=== PATIENT | male | born 1955 | race Caucasian/White ===

== ENCOUNTER → 2017-10-24 | Outpatient (CLI) | payer BC ==
[~2017-10-24] MED LIST: ADVIN50050 INH; ALBU18002 INH; ALBU1AER9 INH; ASPI81TA28 PO; ATV/1 PO; AZEL0.055 OP; CIPR-255 PO; CLB/200 PO; CLON0.5T3 PO; CYM/30 PO; DULO60CA44 PO; FLUT27.5 NAE; GABA-112 PO; GLC/500 PO; HYDR12.55 PO; KETO1DRO13 OPB; LISI-729 PO; LOSA1TAB PO; LOVA40TA4 PO; MECL1TAB42 PO; MONT1TAB3 PO; OLAN1TAB7 PO; OLOP0.6S NAE; OXYB15TA12 PO; OXYB5TAB21 PO; PANT1TAB3 PO; PRAV20TA PO; PRLSR20 PO; SERT-234 PO; TIOT1SPR INH; TURMERIC PO
--- NOTE | 2017-10-24 14:45 | DIAGNOSTIC IMAGING REPORT ---
ABDOMEN AND PELVIS CT WITHOUT CONTRAST CT DOSE: 1064.81 mGycm HISTORY: Acute bladder spasms with history of multiple urinary tract infections N32.89 Bladder [id number] Bladder neck contractHock[facility]# [id number] TECHNIQUE: Multiaxial CT images of the abdomen and pelvis were performed without contrast. A dose lowering technique was utilized adhering to the principles of ALARA. COMPARISON STUDY: None. FINDINGS: 3 mm nodule of the free segment lingula is pleural-based causing mild retraction of the subpleural fat. Pleural-based nodules of the right lower lobe are seen measuring up to 3 mm. These are likely benign. No pneumatosis or pneumoperitoneum. The imaged inferior cardiac chambers are unremarkable. Prior cholecystectomy. Mild fatty infiltration of the liver. No focal hepatic mass lesions or intrahepatic biliary ductal dilation. Spleen, and adrenal glands are within normal limits. Mild to moderate generalized pancreatic atrophy. Mild symmetric nonspecific bilateral perinephric stranding without renal calculi, ureteral calculi or obstructive uropathy. The ureters appear normal. Suprapubic urinary bladder catheter is noted with decompressed urinary bladder lumen. Mild stranding with wall thickening of the bladder is noted. Prostate appears to be surgically absent. Tiny small bilateral fat filled inguinal hernias. Mild atherosclerosis of the aorta. No pathologic adenopathy. There is no bowel obstruction or focal bowel wall thickening. Moderate stool volume of the rectum and sigmoid. Mild to moderate stool volume is noted throughout the remainder of the colon. The appendix appears to be noninflamed. Postoperative changes of the anterior abdominal wall. Soft tissues are unremarkable. There are no suspicious lytic or blastic bony lesions identified. Multilevel facet arthropathy of the lumbar spine. IMPRESSION: 1. No renal calculi or obstructive uropathy. 2. Suprapubic catheter within a decompressed urinary bladder lumen. There is mild wall thickening with mild perivesicular stranding. Correlate with urinalysis to exclude cystitis. 3. Prior prostatectomy and cholecystectomy. 4. Hepatic steatosis. 5. No bowel obstruction or focal bowel wall thickening. Electronically signed by: Ke Lynch M.D. 10/24/2017 2:44 PM Dictated Date/Time: 10/24/2017 2:37 PM
== END | disposition home or self-care (01) ==
LOC: C.CTS 14:19
PROVIDERS: ATTEND Urology
DX: N32.0 Bladder-neck obstruction (principal); N32.89 Other specified disorders of bladder; K76.0 Fatty (change of) liver, not elsewhere classified

== ENCOUNTER 2017-11-06 09:56 | Day surgery (SDC) | payer BC ==
[2017-10-24 12:54] VITALS: BMI 40.0
--- NOTE | 2017-10-24 13:38 | PAT Medication Instructions ---
Service Date Oct 24, 2017. Current Home Medication List Albuterol Sulfate (Proair Respiclick), 2 PUFFS INH PRN Aspirin (Aspirin Ec), 81 MG PO QAM Azelastine Hcl (Ophth) (Azelastine Hcl), 1 DROPS OP BID Clonazepam (Klonopin), 0.5 MG PO BID Duloxetine Hcl (Cymbalta), 30 MG PO QPM Duloxetine Hcl (Cymbalta), 60 MG PO QAM Gabapentin (Neurontin), 100 MG PO TID Hydrochlorothiazide (Hydrochlorothiazide), 1 TAB PO QAM Ketotifen Fumarate (Ophth) (Thera Tears Allergy Eye I), 1 DROP OPB PN Lisinopril (Zestril), 5 MG PO QAM Lorazepam (Ativan), 1 MG PO TID PRN for PRN Meclizine Hcl (Meclizine Hcl), 1 TAB PO TID PRN for RN Metformin Hcl (Glucophage), 500 MG PO BID Montelukast Sodium (Singulair), 10 MG PO QAM Omeprazole (Prilosec), 20 MG PO QAM Oxybutynin Chloride (Ditropan Xl), 1 TAB PO TID Pravastatin (Pravachol ), 40 MG PO QPM Sertraline (Zoloft), 150 MG PO QAM Tiotropium [place] (Spiriva Respimat), 2 PUFF INH QAM [Turmeric], 1 TAB PO QAM Medication Instructions For Your Scheduled Surgery -Contact your surgeon for instructions for: Aspirin (Aspirin Ec), 81 MG PO QAM - Hold the following medications 2 weeks prior to surgery: [Turmeric], 1 TAB PO QAM - Hold the following medications the morning of surgery: Hydrochlorothiazide (Hydrochlorothiazide), 1 TAB PO QAM Lisinopril (Zestril), 5 MG PO QAM Metformin Hcl (Glucophage), 500 MG PO BID - Take the following medications the morning of surgery with a sip of water: Albuterol Sulfate (Proair Respiclick), 2 PUFFS INH PRN (if needed) Azelastine Hcl (Ophth) (Azelastine Hcl), 1 DROPS OP BID Clonazepam (Klonopin), 0.5 MG PO BID Duloxetine Hcl (Cymbalta), 60 MG PO QAM Gabapentin (Neurontin), 100 MG PO TID Ketotifen Fumarate (Ophth) (Thera Tears Allergy Eye I), 1 DROP OPB PN (if needed ) Lorazepam (Ativan), 1 MG PO TID PRN for PRN (if needed) Meclizine Hcl (Meclizine Hcl), 1 TAB PO TID PRN for RN (if needed) Montelukast Sodium (Singulair), 10 MG PO QAM Omeprazole (Prilosec), 20 MG PO QAM Oxybutynin Chloride (Ditropan Xl), 1 TAB PO TID Sertraline (Zoloft), 150 MG PO QAM Tiotropium [place] (Spiriva Respimat), 2 PUFF INH QAM - Take the following medications as scheduled the night before surgery: Albuterol Sulfate (Proair Respiclick), 2 PUFFS INH PRN (if needed) Azelastine Hcl (Ophth) (Azelastine Hcl), 1 DROPS OP BID Clonazepam (Klonopin), 0.5 MG PO BID Duloxetine Hcl (Cymbalta), 30 MG PO QPM Gabapentin (Neurontin), 100 MG PO TID Ketotifen Fumarate (Ophth) (Thera Tears Allergy Eye I), 1 DROP OPB PN (if needed ) Lorazepam (Ativan), 1 MG PO TID PRN for PRN (if needed) Meclizine Hcl (Meclizine Hcl), 1 TAB PO TID PRN for RN (if needed) Metformin Hcl (Glucophage), 500 MG PO BID Pravastatin (Pravachol ), 40 MG PO QPM If you have any questions please call us at [phone] or [phone] or [phone]
[2017-10-24 15:25] LABS: BASO % 0.5 %; BASO ABS # 0.05 K/uL (0-0.2); EOS % 3.5 %; EOS ABS # 0.32 K/uL (0-0.5); HEMATOCRIT 41.1 % (42-52); IG# 0.03 K/uL (0.00-0.02); LYMPH % 22.2 %; LYMPH ABS # 2.04 K/uL (1.2-3.4); MEAN CELL VOLUME 81.4 fL (80-100); MEAN CORPUSCULAR HEMOGLOBIN 27.7 pg (25-34); MEAN CORPUSCULAR HGB CONC 34.1 g/dl (32-36); MEAN PLATELET VOLUME 9.3 fL (7.4-10.4); MONO % 9.2 %; MONO ABS # 0.84 K/uL (0.11-0.59); NEUT % 64.3 %; NEUT ABS # 5.89 K/uL (1.4-6.5); PLATELET COUNT 254 K/uL (130-400); RED CELL DISTRIBUTION WIDTH CV 13.9 % (11.5-14.5); RED CELL DISTRIBUTION WIDTH SD 41.7 fL (36.4-46.3); WHITE BLOOD COUNT 9.17 K/uL (4.8-10.8)
[2017-10-24 15:32] LABS: ALBUMIN 3.3 gm/dl (3.4-5.0); ALT/SGPT 25 U/L (12-78); AST/SGOT 12 U/L (15-37); BLOOD UREA NITROGEN 19 mg/dl (7-18); CALCIUM 8.9 mg/dl (8.5-10.1); CARBON DIOXIDE 25 mmol/L (21-32); CREATININE 1.08 mg/dl (0.60-1.40); GLUCOSE 123 mg/dl (70-99); POTASSIUM 3.8 mmol/L (3.5-5.1); SODIUM 137 mmol/L (136-145)
[2017-10-24 15:34] LABS: ALKALINE PHOSPHATASE 94 U/L (45-117); TOTAL PROTEIN 7.4 gm/dl (6.4-8.2)
[~2017-11-06] VITALS: Ht 172.7 cm; Wt 119.9 kg
[~2017-11-06 09:56] MED LIST changes: -ADVIN50050 INH; -ALBU1AER9 INH; -CIPR-255 PO; +CIPROFLOXACIN / D5W 400 MG IV SCH; -CLB/200 PO; -FLUT27.5 NAE; +LACTATED RINGER'S 1000ML 1,000 ML IV SCH; -LOSA1TAB PO; -LOVA40TA4 PO; -OLAN1TAB7 PO; -OLOP0.6S NAE; -OXYB15TA12 PO; -PANT1TAB3 PO
[2017-11-06 10:10] VITALS: BP 146/94; PULSE 99; TEMP 36.5; O2SAT 96; Ht 172.7 cm; Wt 119.9 kg
[2017-11-06] MEDS ORDERED: PROPOFOL IV EMULSION 10 MG/ML 20 ML VIAL IV ONE (10:19)
[2017-11-06] MEDS ORDERED: MIDAZOLAM HCL 1 MG/ML 2ML VIAL ONE (10:19)
[2017-11-06] MEDS ORDERED: LIDOCAINE HCL 2% 2 ML VIAL (20MG/ML) ONE (10:19)
[2017-11-06] MEDS ORDERED: FENTANYL CITRATE INJ 50 MCG/1 ML 2 ML VIAL ONE (10:19)
[2017-11-06] MEDS ORDERED: ONDANSETRON INJ 2 MG/ML 2 ML VIAL ONE (10:19)
[2017-11-06] MEDS ORDERED: KETOROLAC TROMETHAMINE 30 MG/ML VIAL ONE (10:19)
[2017-11-06] MEDS ORDERED: LACTTAB7 PO (10:26)
[2017-11-06] MEDS ORDERED: MULT-506 PO (10:26)
--- NOTE | 2017-11-06 10:47 | History & Physical Bridge Note ---
H&P Re-Evaluation Bridge Note: I have examined the patient, reviewed the History & Physical and in the interval since the performance of the History & Physical I have noted the following changes of clinical significance: No changes noted
[2017-11-06] MEDS ORDERED: Cysto-Conray II 17.2% 250ML BOTTLE ONE ×2 (10:52→11:51)
[2017-11-06] MEDS ORDERED: OXYC7.5T65 PO (10:57)
[2017-11-06] MEDS ORDERED: CIPR-255 PO (10:57)
--- NOTE | 2017-11-06 10:59 | Discharge Instructions ---
Discharge Instructions Date of Service Nov 06, 2017. Admission Reason for Admission: Benign Prostatic Hypertrophy W/Obstruction, Lower Discharge Discharge Diagnosis / Problem: Bladder Neck Contracture, Urethral stricture Discharge Goals Goal(s): Decrease discomfort, Improve function Activity Recommendations Activity Limitations: per Instructions/Follow-up section Lifting Limitations: gradually increase as tolerated Exercise/Sports Limitations: gradually increase as tolerated Shower/Bathe: no limitations . Instructions / Follow-Up Instructions / Follow-Up Expect blood in urine. Will likely have pain with spasms. Okay to continue medications for spasms. Finish antibiotics. Follow up as ordered to reassess. Current Hospital Diet Patient's current hospital diet: Discharge Diet Recommended Diet: Regular Diet Procedures Procedures Performed: Cystoscopy, RUG, Cystogram, SP Change, Camacho placement Pending Studies Studies pending at discharge: no Medical Emergencies . Who to Call and When: Medical Emergencies: If at any time you feel your situation is an emergency, please call 911 immediately. . Non-Emergent Contact Non-Emergency issues call your: Primary Care Provider, Urologist Call Non-Emergent contact if: you have a fever, temperature is above 101, temperature is above 101.5, your pain is not controlled, your pain is worsening , wound has increased drainage, wound has increased redness, wound has increased pain . . "Provider Documentation" section prepared by David Lucio. .
[2017-11-06] MEDS ORDERED: BELLADONNA/OPIUM SUPP 60 MG SUPP PR PRN (11:00)
[2017-11-06] MEDS ORDERED: OXYCODONE/ACETAMINOPHEN 7.5-325 TAB PO PRN (11:00)
[2017-11-06] MEDS ORDERED: EpHEDrine SULFATE 50MG/5ML SYR ONE (11:43)
[2017-11-06] MEDS ORDERED: PHENYLEPHRINE 100MCG/ML 5ML SYR ONE (11:43)
[2017-11-06] MEDS ORDERED: ONDANSETRON INJ 2 MG/ML 2 ML VIAL IV PRN (11:45)
[2017-11-06] MEDS ORDERED: ATROPINE SULFATE 0.1 MG/ML 5ML SYR IV PRN (11:45)
[2017-11-06] MEDS ORDERED: FENTANYL CITRATE INJ 50 MCG/1 ML 2 ML VIAL IV PRN (11:45)
[2017-11-06] MEDS ORDERED: SUCCINYLCHOLINE CHLORIDE 20 MG/ML 10 ML VIAL IV ONE (12:24)
--- NOTE | 2017-11-06 13:00 | [facility] Operative Report ---
Operative Report Operative Date Nov 06, 2017. Pre-Operative Diagnosis Bladder neck contracture. Uretheral Stricture Post-Operative Diagnosis Same Procedure(s) Performed Retrograde urethrogram, Cystogram, urethroscopy, Flexible Cystoscopy via Suprapubic tract, Suprapubic catheter exchange. Surgeon Naveed Door Tender Surgeon(s) Ramses Estimated Blood Loss Minimal Findings Severe stricture of urethra with blind ending track. Questionable pinpoint Specimens None Drains 16 Fr Suprapubic catheter. 22 Fr catheter Anesthesia Type General Complication(s) none Disposition Recovery Room / PACU Indications Severe stricture with long time suprapubic drainage. Had prostatectomy with major issues and developed severe scaring. Patient is agreeable and consented. Description of Procedure Patient was consented and brought back to the operating room. Patient was placed under anesthesia in the supine position and moved to the dorsal lithotomy position. Patient was prepped and draped in the regular sterile fashion. A time out was completed. A 16 romanian catheter was placed in approximately 1 cm into the urethra and a retrograde urethrogram was completed. Contrast was also placed into the suprapubic tube and a cystogram completed. Images were saved. At this point a wire was placed into the suprapubic tract and a flexible scope was placed into the bladder after removing the SP tube. A 30degree Cystoscope was placed into the urethra and taken to the region of the bladder neck. Stricture was noted just proximal to the sphincter. A considerable narrowing and blind ending was appreciated. The entire bladder was examined with the flexible scope. The bladder neck was identified with a blind ending. The bladder neck was considerably narrowed and completely blunted. The UO's were identified in relation to the bladder neck. A urethrogram was completed with an open ended catheter. A small track was noted to be connecting the bladder. A questionable pinpoint opening was appreciated. Multiple attempts at wire placement and canalization were attempted. This appeared to be a considerable length of stricture. The wire would only advance approx 2 mm. Utilizing a scope in the urethra and at the bladder neck attempt was made to visualize the light from the scope within the bladder. At no point was this able to be visualized. After multiple failed attempts to enter the bladder with a wire, some final images were taken to attempt to better characterize the contractured segment. At this point, a wire was left in the bladder from the SP tube. A suprapubic catheter was placed and the bladder drained. With the catheter in place, the bladder was emptied. The scope was removed. The patient was cleaned, aroused from anesthesia, and transferred to the pacu in stable condition having tolerated the procedure well with no complications. Will discuss findings at length with patient and discuss further options for reconstruction. I was present and participated in all aspects of the procedure. Kathy Pearce was integral in the case and assisted at multiple points, including scope manipulation, wire management, contrast injection, and assistance with equipment. The patient will be monitored in the PACU until transferred. I attest to the content of the Intraoperative Record and any orders documented therein. Any exceptions are noted below.
--- NOTE | 2017-11-06 13:43 | DIAGNOSTIC IMAGING REPORT ---
RETROGRADE URETHROGRAM CLINICAL HISTORY: 62 years-old Male presenting with RETROGRADE URET. TECHNIQUE: 5 fluoroscopic spot image(s) obtained as part of an intraoperative procedure. COMPARISON: CT from 10/24/2017. FINDINGS/IMPRESSION: The penile urethra was first opacified with contrast and was normal appearing. Subsequently, the bladder was distended with contrast. Surgical clips project of the pelvis. A guidewire was passed through a suprapubic catheter into the urinary bladder. A scope was inserted into the penile urethra. Please see surgical report for further details. Fluoroscopy dosage (mGy): 76.11. Fluoroscopy time: 4 minutes 2 seconds. Number of fluoroscopic spot images: 5. Electronically signed by: Juvenal Chakraborty M.D. 11/06/2017 1:41 PM Dictated Date/Time: 11/06/2017 1:36 PM
[2017-11-06 13:50] VITALS: BP 121/75; PULSE 86; TEMP 36.7; O2SAT 99
--- NOTE | 2017-11-06 14:04 | Anesthesiology Progress Note ---
Anesthesia Post Op Note Date & Time Nov 06, 2017 at 14:04 Vital Signs Pain Intensity: 0 Vital Signs Past 12 Hours Date Time Temp Pulse Resp B/P (MAP) Pulse Ox O2 Delivery O2 Flow Rate FiO2 11/06/17 13:40 37.3 90 16 113/90 97 Room Air 11/06/17 13:30 93 16 126/93 95 Room Air 11/06/17 13:20 93 16 148/93 98 Oxymask 15 11/06/17 13:10 92 16 121/84 92 Oxymask 15 11/06/17 13:03 37.4 85 16 116/78 94 Oxymask 15 11/06/17 10:10 36.5 99 20 146/94 (111) 96 Room Air Notes Mental Status: alert / awake / arousable, participated in evaluation Pt Amnestic to Procedure: Yes Nausea / Vomiting: adequately controlled Pain: adequately controlled Airway Patency, RR, SpO2: stable & adequate BP & HR: stable & adequate Hydration State: stable & adequate Anesthetic Complications: no major complications apparent
[2017-11-06 14:25] VITALS: BP 143/70; PULSE 79; TEMP 36.5; O2SAT 99
== END 2017-11-06 14:48 | disposition home or self-care (01) ==
LOC: C.ACU 09:56
PROVIDERS: ATTEND Urology
DX: N32.0 Bladder-neck obstruction (principal); N35.9 Urethral stricture, unspecified; N39.41 Urge incontinence; C61 Malignant neoplasm of prostate; N40.1 Benign prostatic hyperplasia with lower urinary tract symptoms; N13.8 Other obstructive and reflux uropathy; Z80.42 Family history of malignant neoplasm of prostate; Z88.0 Allergy status to penicillin